=== PATIENT | female | born 1940 | race Caucasian/White ===

== ENCOUNTER 2018-07-31 15:34 | Inpatient (IN) | payer MEDICARE ==
[2018-07-31 15:40] VITALS: BMI 25.0
--- NOTE | 2018-07-31 16:24 | C.PDOC ---
History Of Present Illness 78 y/o female presents to the ER complaining of abdominal pain which has been present for the past 3 days.Patient states that she has abdominal pain when she has the urge to have bowel movement. Patient reports that she has diarrhea. She notes that she had 2 fainting episodes because of the pain yesterday. Daughter of patient notes that she was recently diagnosed with UTI 2 months ago and she just completed course of abx few days ago. Patient states that she has dizziness, nausea, and generalized weakness. Denies having fever,chills, vomiting, dysuria, and hematuria. PMD:Dr.Jayeshkumar Fonseca Time Seen by Provider: 07/31/18 15:47 Chief Complaint (Nursing): Abdominal Pain Past Medical History Reviewed: Historical Data, Nursing Documentation, Vital Signs Vital Signs: Last Vital Signs Temp 98.3 F 07/31/18 15:40 Pulse 76 07/31/18 15:40 Resp 18 07/31/18 15:40 BP 101/62 07/31/18 15:40 Pulse Ox 99 07/31/18 15:40 Primary Care Provider: Paco Fonseca S - Medical History PMH: Anemia, Diabetes, HTN, Hypothyroidism Other Surgeries: Hx of surgeries - [facility] Procedures COLONOSCOPY (02/18/14) Family History: States: No Known Family Hx - Social History Hx Tobacco Use: No Hx Alcohol Use: No Hx Substance Use: No - Immunization History Hx Tetanus Toxoid Vaccination: No Review Of Systems Except As Marked, All Systems Reviewed And Found Negative. Constitutional: Positive for: Weakness. Negative for: Fever, Chills Gastrointestinal: Positive for: Nausea, Abdominal Pain, Diarrhea. Negative for: Vomiting Genitourinary: Negative for: Dysuria, Hematuria Neurological: Positive for: Dizziness. Negative for: Headache Physical Exam - Physical Exam Appears: Non-toxic, No Acute Distress Skin: Normal Color, Warm, Dry Head: Atraumatic, Normacephalic Eye(s): bilateral: Normal Inspection Nose: Normal Oral Mucosa: Moist Lips: Other (dry lips) Neck: Supple Chest: Symmetrical Cardiovascular: Rhythm Regular Respiratory: Normal Breath Sounds, No Rales, No Rhonchi, No Wheezing Gastrointestinal/Abdominal: Soft, Tenderness, No Guarding, No Rebound (tenderness in lower quadrant(L>R)) Neurological/Psych: Oriented x3, Normal Speech ED Course And Treatment - Laboratory Results Result Diagrams: 07/31/18 16:49 07/31/18 16:49 ECG: Interpreted By Me, Viewed By Me ECG Rhythm: Sinus Rhythm Interpretation Of ECG: NSR with right axis deviation and prolonged WI interval Rate From EC O2 Sat by Pulse Oximetry: 99 (RA) Pulse Ox Interpretation: Normal Medical Decision Making Medical Decision Making: Plan: --Labs --ECG --UA --Urine Culture --CT-Abd & Pelv. Updates: 18:[address]J Fonseca. Patient will be admitted under the service of Dr. Ban Fonseca. 18:45 Case discussed with GI fellow. GI fellow advised for stool culture order. GI Fellow noted that if C.Diff is negative, then medications can be changed. Disposition - Disposition - Scribe Statement The provider has reviewed the documentation as recorded by the Scribe Rajesh Barlow Provider Attestation: All medical record entries made by the Scribe were at my direction and personally dictated by me. I have reviewed the chart and agree that the record accurately reflects my personal performance of the history, physical exam, medical decision making, and the department course for this patient. I have also personally directed, reviewed, and agree with the discharge instructions and disposition.
[2018-07-31 16:53] LABS: BASO % 0.2 % (0.0-2.0); EOS % 0.5 % (0.0-4.0); HEMOGLOBIN 9.4 g/dL (11.0-16.0); LYMPH # 0.9 K/uL (1.0-4.3); LYMPH % 8.9 % (20.0-40.0); MEAN CELL VOLUME 87.3 fL (81.0-99.0); MEAN CORPUSCULAR HEMOGLOBIN 28.7 pg (27.0-31.0); MEAN CORPUSCULAR HGB CONC 32.9 g/dL (33.0-37.0); MEAN PLATELET VOLUME 7.8 fL (7.2-11.7); MONO # 0.9 K/uL (0.0-0.8); MONO % 8.7 % (0.0-10.0); NEUT # 8.7 K/uL (1.8-7.0); NEUT % 81.7 % (50.0-75.0); PLATELET COUNT 183 K/uL (130-400); RBC 3.26 Mil/uL (3.80-5.20); RED CELL DISTRIBUTION WIDTH 14.7 % (11.5-14.5)
[2018-07-31 16:56] LABS: WHITE BLOOD COUNT 10.6 K/uL (4.8-10.8)
[2018-07-31 17:15] LABS: ALB/GLOB RATIO 1.5 (1.0-2.1); ALBUMIN 3.7 g/dL (3.5-5.0); ALT/SGPT 55 U/L (9-52); AST/SGOT 52 U/L (14-36); BLOOD UREA NITROGEN 12 mg/dL (7-17); CALCIUM 7.2 mg/dl (8.6-10.4); GFR NON-AFRICAN AMERICAN 54; LIPASE 69 U/L (23-300)
[2018-07-31 17:16] LABS: SQUAMOUS EPITHIAL 1 /hpf (0-5); URINE BACTERIA RARE (<OCC); URINE BILIRUBIN NEGATIVE (NEGATIVE); URINE BLOOD NEGATIVE (NEGATIVE); URINE CLARITY Clear (Clear); URINE COLOR Yellow (YELLOW); URINE GLUCOSE (UA) NORMAL (Normal); URINE LEUKOCYTE ESTERASE NEG Leu/uL (Negative); URINE PROTEIN NEGATIVE (NEGATIVE); URINE UROBILINOGEN NORMAL mg/dL (0.2-1.0)
[2018-07-31] MEDS ORDERED: Sodium Chloride 0.9% 1,000 ML ONE (17:29)
[2018-07-31] MEDS: Sodium Chloride 0.9% 1,000 ML IV SCH (17:30)
[2018-07-31] MEDS ORDERED: Iodixanol 320 MG/ML 100 ML BOTTLE IV ONE (17:31)
[2018-07-31 17:42] LABS: BANDS 15 % (0-2); LYMPHOCYTE 10 % (20-40); MONOCYTE 5 % (0-10); NEUTROPHIL 70 % (50-75); TOTAL CELLS COUNTED 100
[2018-07-31 17:43] LABS: HYPOCHROMIC SLIGHT; PLATELET ESTIMATE NORMAL (NORMAL); POLYCHROMIC SLIGHT
--- NOTE | 2018-07-31 18:20 | CT ---
Date of service: 07/31/2018 PROCEDURE: CT Abdomen and Pelvis with contrast HISTORY: Abdominal pain. COMPARISON: None. TECHNIQUE: Intravenous contrast dose: 100 cc Visipaque 320. Radiation dose: Total exam DLP = 558.79 mGy-cm. This CT exam was performed using one or more of the following dose reduction techniques: Automated exposure control, adjustment of the mA and/or kV according to patient size, and/or use of iterative reconstruction technique. FINDINGS: LOWER THORAX: Unremarkable. LIVER: Unremarkable. No gross lesion or ductal dilatation. Incidental finding(s): 1 cm cyst left hepatic lobe adjacent to the falciform ligament. GALLBLADDER AND BILE DUCTS: Unremarkable. PANCREAS: Unremarkable. No gross lesion or ductal dilatation. SPLEEN: Unremarkable. ADRENALS: Unremarkable. No mass. KIDNEYS AND URETERS: Unremarkable. No hydronephrosis. No solid mass. VASCULATURE: Unremarkable. No aortic aneurysm. No atherosclerotic calcification or mural plaque present. BOWEL: Severe estrella colitis. APPENDIX: A normal appendix is not visible. PERITONEUM: Unremarkable. No free fluid. No free air. LYMPH NODES: Unremarkable. No enlarged lymph nodes. BLADDER: Unremarkable. REPRODUCTIVE: Unremarkable. BONES: No acute fracture. OTHER FINDINGS: Trace fluid or cystic area in the left inguinal canal. Adjacent enlarged inguinal lymph nodes, the largest 1.3 x 1.6 cm. IMPRESSION: Estrella colitis. The most severely affected area includes the distal descending colon, sigmoid and rectum. Additional benign and/or incidental findings described above.
[2018-07-31] MEDS ORDERED: Ciprofloxacin 400mg/200ml D5W 400 MG/200 ML BAG IVPB STA (18:38)
[2018-07-31] MEDS ORDERED: Ciprofloxacin 400mg/200ml D5W 400 MG/200 ML BAG IVPB ONE (18:53)
[2018-07-31 19:05] LABS: VENOUS BLOOD GAS BASE EXCESS 3.2 mmol/L (0.0-2.0); VENOUS BLOOD GAS PCO2 42 mmHg (40-60); VENOUS BLOOD GAS PO2 18 mm/Hg (30-55); VENOUS BLOOD PH 7.43 (7.32-7.43)
[2018-07-31 23:21] VITALS: RESP 20
[2018-08-01] MEDS: metroNIDAZOLE IV 500 mg/100 ml 500 MG/100 ML BAG IVPB SCH ×3 (01:33→17:44)
[2018-08-01] MEDS: Sodium Chloride 0.9% 1,000 ML IV SCH ×2 (03:30→23:30)
[2018-08-01] MEDS: Levothyroxine 25 MCG TAB PO SCH (05:55)
[2018-08-01] MEDS ORDERED: Ciprofloxacin 400mg/200ml D5W 400 MG/200 ML BAG IVPB SCH (06:00)
[2018-08-01] MEDS ORDERED: Levothyroxine 25 MCG TAB PO SCH (06:30)
[2018-08-01 08:47] LABS: C DIFF TOXIN A B POSITIVE (NEGATIVE)
[2018-08-01] MEDS: Metoprolol Succinate 25 mg XL Tab PO SCH (09:15)
[2018-08-01] MEDS: Pantoprazole 40 mg EC Tab PO SCH (09:20)
--- NOTE | 2018-08-01 09:28 | CP.PCM.CON ---
<Sofía Calloway - Last Filed: 08/01/18 09:31> History of Present Illness - History of Present Illness History of Present Illness: GI Fellow PGY5 Consult Note 78 y/o female with pmhx of HTN, HLD, Hypothyroidism who presents to the ER complaining of abdominal pain which has been present for the past 3 days.Patient reports that she has diarrhea and was recently diagnosed with UTI 2 months ago and just completed course of abx few days ago. Patient states that she has dizziness, nausea, and generalized weakness. Denies having fever,chills, vomiting, dysuria, and hematuria. Pt had a screening colonoscopy [place] [address] Franks, no polyps or mass lesions found, +internal hemorrhoids Grade 2. Cec al intubation was not done and scope only reached mid ascending colon due to multiple bowel adhesions from intrabdominal surgery and patient was bradycardiac during procedure requiring atropine. Pt was told to followup as an outpatient for barium enema to evaluate right side of the colon but never came for appointment. ROS: A 12pt ROS was negative except as above PmHx: As stated in [facility]: Unable to recall SH: Denies tobacco, etoh or drugs FH: Negative for GI malignancy Past Patient History - Past Medical History & Family History Past Medical History?: Yes - Past Social History Smoking Status: Never Smoked - CARDIAC Hx Hypertension: Yes - PULMONARY Hx Respiratory Disorders: No - NEUROLOGICAL Hx Neurological Disorder: No - HEENT Hx HEENT Problems: Yes Hx Cataracts: Yes (BIOL) - ENDOCRINE/METABOLIC Hx Hypothyroidism: Yes - HEMATOLOGICAL/ONCOLOGICAL Hx Anemia: Yes - INTEGUMENTARY Hx Dermatological Problems: No - MUSCULOSKELETAL/RHEUMATOLOGICAL Hx Falls: No - GASTROINTESTINAL Hx Gastrointestinal Disorders: No - GENITOURINARY/GYNECOLOGICAL Hx Genitourinary Disorders: Yes Hx Urinary Tract Infection: Yes (since may 2018 for 2 months) - PSYCHIATRIC Hx Substance Use: No - SURGICAL HISTORY Hx Surgeries: Yes Hx Cataract Extraction: Yes (BIOL) Hx Coronary Stent: Yes Hx Dilation and Curettage: Yes Hx Thyroidectomy: Yes (SUB TOTAL) - ANESTHESIA Hx Anesthesia: Yes Hx Anesthesia Reactions: No Hx Malignant Hyperthermia: No Meds Allergies/Adverse Reactions: Allergies Allergy/AdvReac Type Severity Reaction Status Date / Time No Known Allergies Allergy Verified 07/31/18 15:39 - Medications Medications: Current Medications Amlodipine Besylate (Norvasc) 5 mg PO DAILY [facility] Last Admin: 08/01/18 09:15 Dose: 5 mg Aspirin (Ecotrin) 81 mg PO DAILY [facility] Last Admin: 08/01/18 09:15 Dose: 81 mg Enoxaparin Sodium (Lovenox) 40 mg SC DAILY [facility] Sodium Chloride (Sodium Chloride 0.9%) 1,000 mls @ 100 mls/hr IV .Q10H [facility] Last Admin: 07/31/18 17:30 Dose: 100 mls/hr Metronidazole (Flagyl) 500 mg in 100 mls @ 100 mls/hr IVPB Q8H [facility]; Protocol Last Admin: 08/01/18 01:33 Dose: 100 mls/hr Levothyroxine Sodium (Synthroid) 25 mcg PO DAILY@0630 [facility] Last Admin: 08/01/18 05:55 Dose: 25 mcg Losartan Potassium (Cozaar) 25 mg PO DAILY [facility] Last Admin: 08/01/18 09:15 Dose: 25 mg Metoprolol Succinate (Toprol Xl) 25 mg PO DAILY [facility] Last Admin: 08/01/18 09:15 Dose: 25 mg Ondansetron HCl (Zofran Tab) 4 mg PO TID PRN PRN Reason: Nausea/Vomiting Pantoprazole Sodium (Protonix Ec Tab) 40 mg PO DAILY [facility] Last Admin: 08/01/18 09:20 Dose: 40 mg Rosuvastatin Calcium (Crestor) 20 mg PO HS [facility] Ticagrelor (Brilinta) 60 mg PO BID [facility] Last Admin: 08/01/18 09:15 Dose: 60 mg Vancomycin HCl (Vancocin 250mg Capsule) 250 mg PO QID [facility] Physical Exam - Constitutional Appears: Non-toxic, No Acute Distress, Chronically Ill - Head Exam Head Exam: ATRAUMATIC, NORMAL INSPECTION, NORMOCEPHALIC - Eye Exam Eye Exam: EOMI, Normal appearance, PERRL - ENT Exam ENT Exam: Mucous Membranes Moist, Normal Exam - Neck Exam Neck exam: Positive for: Full Rom, Normal Inspection - Respiratory Exam Respiratory Exam: Clear to Auscultation Bilateral, NORMAL BREATHING PATTERN - Cardiovascular Exam Cardiovascular Exam: REGULAR RHYTHM, RRR, +S1, +S2 - GI/Abdominal Exam GI & Abdominal Exam: Normal Bowel Sounds, Soft, Tenderness. absent: Distended, Firm, Guarding, Organomegaly - Rectal Exam Rectal Exam: Deferred - Extremities Exam Extremities exam: Positive for: full ROM, normal inspection - Neurological Exam Neurological exam: Alert, Oriented x3 - Psychiatric Exam Psychiatric exam: Flat Affect, Normal Mood - Skin Skin Exam: Dry, Intact, Normal Color, Warm Results - Vital Signs Recent Vital Signs: Last Vital Signs Temp 97.6 F 08/01/18 07:00 Pulse 72 08/01/18 07:00 Resp 20 08/01/18 07:00 BP 127/66 08/01/18 07:00 Pulse Ox 97 08/01/18 07:00 - Labs Result Diagrams: 07/31/18 16:49 07/31/18 16:49 Labs: Laboratory Results - last 24 hr 07/31/18 07/31/18 07/31/18 07:11 16:49 16:49 WBC 10.6 D RBC 3.26 L Hgb 9.4 L Hct 28.4 L MCV 87.3 MCH 28.7 MCHC 32.9 L RDW 14.7 H Plt Count 183 MPV 7.8 Neut % (Auto) 81.7 H Lymph % (Auto) 8.9 L Mccone % (Auto) 8.7 Eos % (Auto) 0.5 Baso % (Auto) 0.2 Neut # (Auto) 8.7 H Lymph # (Auto) 0.9 L Mccone # (Auto) 0.9 H Eos # (Auto) 0.0 Baso # (Auto) 0.0 Neutrophils % (Manual) 70 Band Neutrophils % 15 H* Lymphocytes % (Manual) 10 L Monocytes % (Manual) 5 Platelet Estimate Normal Polychromasia Slight Hypochromasia (manual) Slight pO2 VBG pH VBG pCO2 VBG HCO3 VBG Total CO2 VBG O2 Sat (Calc) VBG Base Excess VBG Potassium Glucose Lactate Sodium 131 L Potassium 3.5 L Chloride 93 L Carbon Dioxide 27 Anion Gap 14 BUN 12 Creatinine 1.0 Est GFR ( Amer) > 60 Est GFR (Non-Af Amer) 54 Random Glucose 94 Calcium 7.2 L Total Bilirubin 1.1 AST 52 H ALT 55 H D Alkaline Phosphatase 63 Troponin I < 0.0120 Total Protein 6.1 L Albumin 3.7 Globulin 2.5 Albumin/Globulin Ratio 1.5 Lipase 69 Venous Blood Potassium Urine Color Urine Clarity Urine pH Ur Specific [place] Urine Protein Urine Glucose (UA) Urine Ketones Urine Blood Urine Nitrate Urine Bilirubin Urine Urobilinogen Ur Leukocyte Esterase Urine WBC (Auto) Urine RBC (Auto) Ur Squamous Epith Cells Urine Bacteria Stool Occult Blood C. difficile Ag & Toxin Positive H 07/31/18 07/31/18 08/01/18 17:10 19:03 07:11 WBC RBC Hgb Hct MCV MCH MCHC RDW Plt Count MPV Neut % (Auto) Lymph % (Auto) Mccone % (Auto) Eos % (Auto) Baso % (Auto) Neut # (Auto) Lymph # (Auto) Mccone # (Auto) Eos # (Auto) Baso # (Auto) Neutrophils % (Manual) Band Neutrophils % Lymphocytes % (Manual) Monocytes % (Manual) Platelet Estimate Polychromasia Hypochromasia (manual) pO2 18 L VBG pH 7.43 VBG pCO2 42 VBG HCO3 25.6 VBG Total CO2 29.2 H VBG O2 Sat (Calc) 22.7 L VBG Base Excess 3.2 H VBG Potassium 3.7 Glucose 99 Lactate 1.2 Sodium 131.0 L Potassium Chloride 100.0 Carbon Dioxide Anion Gap BUN Creatinine Est GFR ( Amer) Est GFR (Non-Af Amer) Random Glucose Calcium Total Bilirubin AST ALT Alkaline Phosphatase Troponin I Total Protein Albumin Globulin Albumin/Globulin Ratio Lipase Venous Blood Potassium 3.7 Urine Color Yellow Urine Clarity Clear Urine pH 7.0 Ur Specific [place] 1.005 Urine Protein Negative Urine Glucose (UA) Normal Urine Ketones Negative Urine Blood Negative Urine Nitrate Negative Urine Bilirubin Negative Urine Urobilinogen Normal Ur Leukocyte Esterase Neg Urine WBC (Auto) 2 Urine RBC (Auto) 1 Ur Squamous Epith Cells 1 Urine Bacteria Rare Stool Occult Blood Positive H C. difficile Ag & Toxin Assessment & Plan - Assessment and Plan (Free Text) Assessment: . C diff colitis 2. Abdominal Pain 3. Diarrhea Plan: -Continue supportive care with IVF hydration and pain control -Clear liquid diet -CT imaging reviewed with thickening of left sided colon worse -Cdiff positive from recent abx use -Pt with bandemia -Will start po vancomycin and IV flagyl -Monitor labs, estrella cultures pending -Pt will need outpatient colonoscopy in 6-8 weeks after resolution of infection -will monitor clinical course <Robert Hogan - Last Filed: 08/01/18 14:10> Meds - Medications Medications: Current Medications Amlodipine Besylate (Norvasc) 5 mg PO DAILY [facility] Last Admin: 08/01/18 09:15 Dose: 5 mg Aspirin (Ecotrin) 81 mg PO DAILY [facility] Last Admin: 08/01/18 09:15 Dose: 81 mg Sodium Chloride (Sodium Chloride 0.9%) 1,000 mls @ 100 mls/hr IV .Q10H [facility] Last Admin: 07/31/18 17:30 Dose: 100 mls/hr Metronidazole (Flagyl) 500 mg in 100 mls @ 100 mls/hr IVPB Q8H [facility]; Protocol Last Admin: 08/01/18 10:12 Dose: 100 mls/hr Levothyroxine Sodium (Synthroid) 25 mcg PO DAILY@0630 [facility] Last Admin: 08/01/18 05:55 Dose: 25 mcg Losartan Potassium (Cozaar) 25 mg PO DAILY [facility] Last Admin: 08/01/18 09:15 Dose: 25 mg Metoprolol Succinate (Toprol Xl) 25 mg PO DAILY [facility] Last Admin: 08/01/18 09:15 Dose: 25 mg Ondansetron HCl (Zofran Tab) 4 mg PO TID PRN PRN Reason: Nausea/Vomiting Pantoprazole Sodium (Protonix Ec Tab) 40 mg PO DAILY [facility] Last Admin: 08/01/18 09:20 Dose: 40 mg Rosuvastatin Calcium (Crestor) 20 mg PO HS [facility] Ticagrelor (Brilinta) 60 mg PO BID [facility] Last Admin: 08/01/18 09:15 Dose: 60 mg Vancomycin HCl (Vancocin 250mg Capsule) 250 mg PO QID [facility] Last Admin: 08/01/18 13:24 Dose: 250 mg Results - Vital Signs Recent Vital Signs: Last Vital Signs Temp 97.6 F 08/01/18 07:00 Pulse 72 08/01/18 07:00 Resp 20 08/01/18 07:00 BP 127/66 08/01/18 07:00 Pulse Ox 97 08/01/18 07:00 - Labs Result Diagrams: 07/31/18 16:49 07/31/18 16:49 Labs: Laboratory Results - last 24 hr 07/31/18 07/31/18 07/31/18 07:11 16:49 16:49 WBC 10.6 D RBC 3.26 L Hgb 9.4 L Hct 28.4 L MCV 87.3 MCH 28.7 MCHC 32.9 L RDW 14.7 H Plt Count 183 MPV 7.8 Neut % (Auto) 81.7 H Lymph % (Auto) 8.9 L Mccone % (Auto) 8.7 Eos % (Auto) 0.5 Baso % (Auto) 0.2 Neut # (Auto) 8.7 H Lymph # (Auto) 0.9 L Mccone # (Auto) 0.9 H Eos # (Auto) 0.0 Baso # (Auto) 0.0 Neutrophils % (Manual) 70 Band Neutrophils % 15 H* Lymphocytes % (Manual) 10 L Monocytes % (Manual) 5 Platelet Estimate Normal Polychromasia Slight Hypochromasia (manual) Slight pO2 VBG pH VBG pCO2 VBG HCO3 VBG Total CO2 VBG O2 Sat (Calc) VBG Base Excess VBG Potassium Glucose Lactate Sodium 131 L Potassium 3.5 L Chloride 93 L Carbon Dioxide 27 Anion Gap 14 BUN 12 Creatinine 1.0 Est GFR ( Amer) > 60 Est GFR (Non-Af Amer) 54 Random Glucose 94 Calcium 7.2 L Total Bilirubin 1.1 AST 52 H ALT 55 H D Alkaline Phosphatase 63 Troponin I < 0.0120 Total Protein 6.1 L Albumin 3.7 Globulin 2.5 Albumin/Globulin Ratio 1.5 Lipase 69 Venous Blood Potassium Urine Color Urine Clarity Urine pH Ur Specific [place] Urine Protein Urine Glucose (UA) Urine Ketones Urine Blood Urine Nitrate Urine Bilirubin Urine Urobilinogen Ur Leukocyte Esterase Urine WBC (Auto) Urine RBC (Auto) Ur Squamous Epith Cells Urine Bacteria Stool Occult Blood C. difficile Ag & Toxin Positive H 07/31/18 07/31/18 08/01/18 17:10 19:03 07:11 WBC RBC Hgb Hct MCV MCH MCHC RDW Plt Count MPV Neut % (Auto) Lymph % (Auto) Mccone % (Auto) Eos % (Auto) Baso % (Auto) Neut # (Auto) Lymph # (Auto) Mccone # (Auto) Eos # (Auto) Baso # (Auto) Neutrophils % (Manual) Band Neutrophils % Lymphocytes % (Manual) Monocytes % (Manual) Platelet Estimate Polychromasia Hypochromasia (manual) pO2 18 L VBG pH 7.43 VBG pCO2 42 VBG HCO3 25.6 VBG Total CO2 29.2 H VBG O2 Sat (Calc) 22.7 L VBG Base Excess 3.2 H VBG Potassium 3.7 Glucose 99 Lactate 1.2 Sodium 131.0 L Potassium Chloride 100.0 Carbon Dioxide Anion Gap BUN Creatinine Est GFR ( Amer) Est GFR (Non-Af Amer) Random Glucose Calcium Total Bilirubin AST ALT Alkaline Phosphatase Troponin I Total Protein Albumin Globulin Albumin/Globulin Ratio Lipase Venous Blood Potassium 3.7 Urine Color Yellow Urine Clarity Clear Urine pH 7.0 Ur Specific Benedict 1.005 Urine Protein Negative Urine Glucose (UA) Normal Urine Ketones Negative Urine Blood Negative Urine Nitrate Negative Urine Bilirubin Negative Urine Urobilinogen Normal Ur Leukocyte Esterase Neg Urine WBC (Auto) 2 Urine RBC (Auto) 1 Ur Squamous Epith Cells 1 Urine Bacteria Rare Stool Occult Blood Positive H C. difficile Ag & Toxin Attending/Attestation - Attestation I have personally seen and examined this patient.: Yes I have fully participated in the care of the patient.: Yes I have reviewed all pertinent clinical information: Yes Notes (Text): 08/01/18 13:53 I have seen and examined patient with GI fellow. Agree with above documentation with the following additions. In brief, this is a 78 year old female with history of HTN, hypothyroidism who presents to hospital with complaint of progressive abdominal pain which started 3 days ago. She describes a bilateral lower quadrant pain, L>R, 7/10 intensity that radiates to suprapubic region. She reports associated non-bloody diarrhea during this time period with copious mucous discharge. She denies nausea, vomiting, fever/chills, weight loss, sick contacts, travel. She does note multiple recent uses of antibiotics for treatment of recurrent UTI. She had a colonoscopy [place] [address] Chawla which was incomplete due to patient experiencing bradycardia during procedure. HTN Hypothyroidism Abdominal pain, diarrhea - c-difficile associated colitis CT imaging reviewed by me showing diffuse colitis, more prominent on left side with ana-colonic stranding and wall thickening - Liquid diet as tolerated - Continue with antibiotic therapy, add PO vancomycin given significant colitis with bandemia - Anti-emetic therapy PRN - Patient will require follow up complete colonoscopy within 6-8 weeks after resolution of acute symptoms - Will continue to monitor patient clinical course
[2018-08-01] MEDS ORDERED: Enoxaparin 40 mg Syringe SC SCH (10:00)
[2018-08-01] MEDS: Vancomycin Hydrochloride 250 mg Capsule (Oral) PO SCH ×4 (10:50→21:44)
--- NOTE | 2018-08-01 14:20 | CP.PCM.HP ---
Past Patient History - Past Medical History & Family History Past Medical History?: Yes - Past Social History Smoking Status: Never Smoked - CARDIAC Hx Hypertension: Yes - PULMONARY Hx Respiratory Disorders: No - NEUROLOGICAL Hx Neurological Disorder: No - HEENT Hx HEENT Problems: Yes Hx Cataracts: Yes (BIOL) - ENDOCRINE/METABOLIC Hx Hypothyroidism: Yes - HEMATOLOGICAL/ONCOLOGICAL Hx Anemia: Yes - INTEGUMENTARY Hx Dermatological Problems: No - MUSCULOSKELETAL/RHEUMATOLOGICAL Hx Falls: No - GASTROINTESTINAL Hx Gastrointestinal Disorders: No - GENITOURINARY/GYNECOLOGICAL Hx Genitourinary Disorders: Yes Hx Urinary Tract Infection: Yes (since may 2018 for 2 months) - PSYCHIATRIC Hx Substance Use: No - SURGICAL HISTORY Hx Surgeries: Yes Hx Cataract Extraction: Yes (BIOL) Hx Coronary Stent: Yes Hx Dilation and Curettage: Yes Hx Thyroidectomy: Yes (SUB TOTAL) - ANESTHESIA Hx Anesthesia: Yes Hx Anesthesia Reactions: No Hx Malignant Hyperthermia: No Meds Allergies/Adverse Reactions: Allergies Allergy/AdvReac Type Severity Reaction Status Date / Time No Known Allergies Allergy Verified 07/31/18 15:39 Physical Exam - Constitutional Appears: Well - Head Exam Head Exam: ATRAUMATIC, NORMAL INSPECTION, NORMOCEPHALIC - Eye Exam Eye Exam: EOMI, Normal appearance, PERRL Pupil Exam: NORMAL ACCOMODATION, PERRL - ENT Exam ENT Exam: Mucous Membranes Moist, Normal Exam - Neck Exam Neck exam: Positive for: Normal Inspection - Respiratory Exam Respiratory Exam: Decreased Breath Sounds - Cardiovascular Exam Cardiovascular Exam: REGULAR RHYTHM, +S1, +S2 - GI/Abdominal Exam GI & Abdominal Exam: Diminished Bowel Sounds, Soft - Rectal Exam Rectal Exam: Deferred - Neurological Exam Neurological exam: Oriented x3 Results - Vital Signs Recent Vital Signs: Last Vital Signs Temp 97.6 F 08/01/18 07:00 Pulse 72 08/01/18 07:00 Resp 20 08/01/18 07:00 BP 127/66 08/01/18 07:00 Pulse Ox 97 08/01/18 07:00 - Labs Result Diagrams: 07/31/18 16:49 07/31/18 16:49 Labs: Laboratory Results - last 24 hr 07/31/18 07/31/18 07/31/18 07:11 16:49 16:49 WBC 10.6 D RBC 3.26 L Hgb 9.4 L Hct 28.4 L MCV 87.3 MCH 28.7 MCHC 32.9 L RDW 14.7 H Plt Count 183 MPV 7.8 Neut % (Auto) 81.7 H Lymph % (Auto) 8.9 L Swisher % (Auto) 8.7 Eos % (Auto) 0.5 Baso % (Auto) 0.2 Neut # (Auto) 8.7 H Lymph # (Auto) 0.9 L Swisher # (Auto) 0.9 H Eos # (Auto) 0.0 Baso # (Auto) 0.0 Neutrophils % (Manual) 70 Band Neutrophils % 15 H* Lymphocytes % (Manual) 10 L Monocytes % (Manual) 5 Platelet Estimate Normal Polychromasia Slight Hypochromasia (manual) Slight pO2 VBG pH VBG pCO2 VBG HCO3 VBG Total CO2 VBG O2 Sat (Calc) VBG Base Excess VBG Potassium Glucose Lactate Sodium 131 L Potassium 3.5 L Chloride 93 L Carbon Dioxide 27 Anion Gap 14 BUN 12 Creatinine 1.0 Est GFR ( Amer) > 60 Est GFR (Non-Af Amer) 54 Random Glucose 94 Calcium 7.2 L Total Bilirubin 1.1 AST 52 H ALT 55 H D Alkaline Phosphatase 63 Troponin I < 0.0120 Total Protein 6.1 L Albumin 3.7 Globulin 2.5 Albumin/Globulin Ratio 1.5 Lipase 69 Venous Blood Potassium Urine Color Urine Clarity Urine pH Ur Specific [place] Urine Protein Urine Glucose (UA) Urine Ketones Urine Blood Urine Nitrate Urine Bilirubin Urine Urobilinogen Ur Leukocyte Esterase Urine WBC (Auto) Urine RBC (Auto) Ur Squamous Epith Cells Urine Bacteria Stool Occult Blood C. difficile Ag & Toxin Positive H 07/31/18 07/31/18 08/01/18 17:10 19:03 07:11 WBC RBC Hgb Hct MCV MCH MCHC RDW Plt Count MPV Neut % (Auto) Lymph % (Auto) Swisher % (Auto) Eos % (Auto) Baso % (Auto) Neut # (Auto) Lymph # (Auto) Swisher # (Auto) Eos # (Auto) Baso # (Auto) Neutrophils % (Manual) Band Neutrophils % Lymphocytes % (Manual) Monocytes % (Manual) Platelet Estimate Polychromasia Hypochromasia (manual) pO2 18 L VBG pH 7.43 VBG pCO2 42 VBG HCO3 25.6 VBG Total CO2 29.2 H VBG O2 Sat (Calc) 22.7 L VBG Base Excess 3.2 H VBG Potassium 3.7 Glucose 99 Lactate 1.2 Sodium 131.0 L Potassium Chloride 100.0 Carbon Dioxide Anion Gap BUN Creatinine Est GFR ( Amer) Est GFR (Non-Af Amer) Random Glucose Calcium Total Bilirubin AST ALT Alkaline Phosphatase Troponin I Total Protein Albumin Globulin Albumin/Globulin Ratio Lipase Venous Blood Potassium 3.7 Urine Color Yellow Urine Clarity Clear Urine pH 7.0 Ur Specific [place] 1.005 Urine Protein Negative Urine Glucose (UA) Normal Urine Ketones Negative Urine Blood Negative Urine Nitrate Negative Urine Bilirubin Negative Urine Urobilinogen Normal Ur Leukocyte Esterase Neg Urine WBC (Auto) 2 Urine RBC (Auto) 1 Ur Squamous Epith Cells 1 Urine Bacteria Rare Stool Occult Blood Positive H C. difficile Ag & Toxin
[2018-08-01] MEDS ORDERED: Potassium Chloride 20 mEq ER Tab PO STA (21:15)
[2018-08-01 21:17] LABS: FECAL LEUKOCYTES POSITIVE (NEGATIVE)
[2018-08-02] MEDS: metroNIDAZOLE IV 500 mg/100 ml 500 MG/100 ML BAG IVPB SCH ×3 (01:53→17:47)
[2018-08-02] MEDS: Levothyroxine 25 MCG TAB PO SCH (06:06)
[2018-08-02] MEDS ORDERED: Ciprofloxacin 400mg/200ml D5W 400 MG/200 ML BAG IVPB SCH (07:00)
--- NOTE | 2018-08-02 08:25 | CP.PCM.PN ---
<Sofía Calloway - Last Filed: 08/02/18 08:22> Subjective - Date & Time of Evaluation Date of Evaluation: 08/02/18 Time of Evaluation: 08:00 - Subjective Subjective: GI Fellow PGY5 Progress Note Pt seen and evaluated at bedside, pt looks much better this am, abdomen less distended with improved pain and less BMs, mostly mucous and not diarrhea. ROS: A 12pt ROS was negative except as above. Objective - Vital Signs/Intake and Output Vital Signs (last 24 hours): Temp Pulse Resp BP Pulse Ox 98 F 61 20 119/65 98 08/01/18 23:26 08/01/18 23:26 08/01/18 23:26 08/01/18 23:26 08/01/18 23:26 Intake and Output: 08/02/18 08/02/18 06:59 18:59 Intake Total 2300 Balance 2300 - Medications Medications: Current Medications Amlodipine Besylate (Norvasc) 5 mg PO DAILY [facility] Last Admin: 08/01/18 09:15 Dose: 5 mg Aspirin (Ecotrin) 81 mg PO DAILY [facility] Last Admin: 08/01/18 09:15 Dose: 81 mg Sodium Chloride (Sodium Chloride 0.9%) 1,000 mls @ 100 mls/hr IV .Q10H [facility] Last Admin: 08/01/18 23:30 Dose: Not Given Metronidazole (Flagyl) 500 mg in 100 mls @ 100 mls/hr IVPB Q8H [facility]; Protocol Last Admin: 08/02/18 01:53 Dose: 100 mls/hr Levothyroxine Sodium (Synthroid) 25 mcg PO DAILY@0630 [facility] Last Admin: 08/02/18 06:06 Dose: 25 mcg Losartan Potassium (Cozaar) 25 mg PO DAILY [facility] Last Admin: 08/01/18 09:15 Dose: 25 mg Metoprolol Succinate (Toprol Xl) 25 mg PO DAILY [facility] Last Admin: 08/01/18 09:15 Dose: 25 mg Ondansetron HCl (Zofran Tab) 4 mg PO TID PRN PRN Reason: Nausea/Vomiting Pantoprazole Sodium (Protonix Ec Tab) 40 mg PO DAILY [facility] Last Admin: 08/01/18 09:20 Dose: 40 mg Rosuvastatin Calcium (Crestor) 20 mg PO HS [facility] Last Admin: 08/01/18 21:44 Dose: 20 mg Ticagrelor (Brilinta) 60 mg PO BID [facility] Last Admin: 08/01/18 17:43 Dose: 60 mg Vancomycin HCl (Vancocin 250mg Capsule) 250 mg PO QID [facility] Last Admin: 08/01/18 21:44 Dose: 250 mg - Labs Labs: 07/31/18 16:49 07/31/18 16:49 - Constitutional Appears: Non-toxic, No Acute Distress - Head Exam Head Exam: ATRAUMATIC, NORMAL INSPECTION, NORMOCEPHALIC - Eye Exam Eye Exam: EOMI, Normal appearance, PERRL - ENT Exam ENT Exam: Mucous Membranes Moist, Normal Exam - Neck Exam Neck Exam: Full ROM, Normal Inspection - Respiratory Exam Respiratory Exam: Clear to Ausculation Bilateral, NORMAL BREATHING PATTERN - Cardiovascular Exam Cardiovascular Exam: REGULAR RHYTHM, RRR, +S1, +S2 - GI/Abdominal Exam GI & Abdominal Exam: Soft, Normal Bowel Sounds. absent: Distended, Firm, Guarding, Tenderness, Organomegaly - Rectal Exam Rectal Exam: Deferred - Extremities Exam Extremities Exam: Full ROM, Normal Inspection - Neurological Exam Neurological Exam: Alert, Awake, Oriented x3 - Psychiatric Exam Psychiatric exam: Normal Affect, Normal Mood - Skin Skin Exam: Dry, Intact, Normal Color, Warm Assessment and Plan - Assessment and Plan (Free Text) Assessment: 1. C diff colitis 2. Abdominal Pain 3. Diarrhea Plan: -Continue supportive care with IVF hydration and pain control -Advance to full liquid diet today -CT imaging reviewed with thickening of left sided colon worse -Cdiff positive from recent abx use -Pt with bandemia, monitor labs -Continue po vancomycin and IV flagyl, dc IV Cipro -When pt ready for dc can go on po vancomycin for total 14days -Pt will need outpatient colonoscopy in 6-8 weeks after resolution of infection -Will monitor clinical course <Robert Hogan - Last Filed: 08/02/18 14:51> Objective - Vital Signs/Intake and Output Vital Signs (last 24 hours): Temp Pulse Resp BP Pulse Ox 97.7 F 58 L 20 120/72 99 08/02/18 08:27 08/02/18 08:27 08/02/18 08:27 08/02/18 08:27 08/02/18 08:27 Intake and Output: 08/02/18 08/02/18 06:59 18:59 Intake Total 2300 Balance 2300 - Medications Medications: Current Medications Acetaminophen (Tylenol 325mg Tab) 650 mg PO Q8 PRN PRN Reason: Pain, Mild (1-3) Last Admin: 08/02/18 13:07 Dose: 650 mg Amlodipine Besylate (Norvasc) 5 mg PO DAILY [facility] Last Admin: 08/02/18 10:39 Dose: 5 mg Aspirin (Ecotrin) 81 mg PO DAILY [facility] Last Admin: 08/02/18 10:39 Dose: 81 mg Hydrocortisone (Anusol-Hc) 0 gm [place] BID [facility] Last Admin: 08/02/18 12:24 Dose: Not Given Sodium Chloride (Sodium Chloride 0.9%) 1,000 mls @ 100 mls/hr IV .Q10H [facility] Last Admin: 08/02/18 10:41 Dose: 100 mls/hr Metronidazole (Flagyl) 500 mg in 100 mls @ 100 mls/hr IVPB Q8H [facility]; Protocol Last Admin: 08/02/18 10:40 Dose: 100 mls/hr Levothyroxine Sodium (Synthroid) 25 mcg PO DAILY@0630 [facility] Last Admin: 08/02/18 06:06 Dose: 25 mcg Losartan Potassium (Cozaar) 25 mg PO DAILY [facility] Last Admin: 08/02/18 10:39 Dose: 25 mg Metoprolol Succinate (Toprol Xl) 25 mg PO DAILY [facility] Last Admin: 08/02/18 10:39 Dose: 25 mg Ondansetron HCl (Zofran Tab) 4 mg PO TID PRN PRN Reason: Nausea/Vomiting Pantoprazole Sodium (Protonix Ec Tab) 40 mg PO DAILY [facility] Last Admin: 08/02/18 10:39 Dose: 40 mg Rosuvastatin Calcium (Crestor) 20 mg PO HS [facility] Last Admin: 08/01/18 21:44 Dose: 20 mg Ticagrelor (Brilinta) 60 mg PO BID [facility] Last Admin: 08/02/18 10:39 Dose: 60 mg Vancomycin HCl (Vancocin 250mg Capsule) 250 mg PO QID [facility] Last Admin: 08/02/18 13:06 Dose: 250 mg - Labs Labs: 08/02/18 11:12 08/02/18 11:12 Attending/Attestation - Attestation I have personally seen and examined this patient.: Yes I have fully participated in the care of the patient.: Yes I have reviewed all pertinent clinical information, including history, physical exam and plan: Yes Notes (Text): 08/02/18 14:45 I have seen and examined patient. No acute events overnight, she is seen resting in bed comfortably. She denies abdominal pain, nausea, vomiting, fever/chills. She had two loose bowel movements today thus far. Tolerating PO liquids without difficulty. Abdominal pain C-difficile associated colitis - Advance diet slowly as tolerated - Continue with PO Vancomycin therapy to complete 14 day course - Follow up ID recommendations regarding ecoli in urine - Suggest outpatient colonoscopy 6-8 weeks following resolution of acute symptoms - Will continue to monitor patient clinical course
[2018-08-02] MEDS: Pantoprazole 40 mg EC Tab PO SCH (10:39)
[2018-08-02] MEDS: Vancomycin Hydrochloride 250 mg Capsule (Oral) PO SCH ×4 (10:39→21:29)
[2018-08-02] MEDS: Metoprolol Succinate 25 mg XL Tab PO SCH (10:39)
[2018-08-02] MEDS: Sodium Chloride 0.9% 1,000 ML IV SCH ×2 (10:41→21:30)
[2018-08-02 11:18] LABS: HEMOGLOBIN 10.1 g/dL (11.0-16.0); MEAN CELL VOLUME 87.1 fL (81.0-99.0); MEAN CORPUSCULAR HEMOGLOBIN 29.2 pg (27.0-31.0); MEAN CORPUSCULAR HGB CONC 33.6 g/dL (33.0-37.0); MEAN PLATELET VOLUME 7.7 fL (7.2-11.7); RBC 3.44 Mil/uL (3.80-5.20); WHITE BLOOD COUNT 6.3 K/uL (4.8-10.8)
[2018-08-02 11:31] LABS: ALB/GLOB RATIO 1.2 (1.0-2.1); ALBUMIN 3.6 g/dL (3.5-5.0); ALT/SGPT 46 U/L (9-52); AST/SGOT 58 U/L (14-36); BLOOD UREA NITROGEN 4 mg/dL (7-17); CALCIUM 8.1 mg/dl (8.6-10.4); GFR NON-AFRICAN AMERICAN > 60
[2018-08-02] MEDS: Hydrocortisone 2.5% Rectal Cream(30 gm) PR SCH ×2 (12:24→17:48)
[2018-08-02 15:34] LABS: SQUAMOUS EPITHIAL 1 /hpf (0-5); URINE BILIRUBIN NEGATIVE (NEGATIVE); URINE BLOOD NEGATIVE (NEGATIVE); URINE CLARITY Clear (Clear); URINE COLOR Yellow (YELLOW); URINE GLUCOSE (UA) NORMAL (Normal); URINE LEUKOCYTE ESTERASE NEG Leu/uL (Negative); URINE PROTEIN NEGATIVE (NEGATIVE); URINE UROBILINOGEN NORMAL mg/dL (0.2-1.0)
--- NOTE | 2018-08-02 15:58 | CP.PCM.CON ---
History of Present Illness - History of Present Illness History of Present Illness: dictated Past Patient History - Past Medical History & Family History Past Medical History?: Yes - Past Social History Smoking Status: Never Smoked - CARDIAC Hx Hypertension: Yes - PULMONARY Hx Respiratory Disorders: No - NEUROLOGICAL Hx Neurological Disorder: No - HEENT Hx HEENT Problems: Yes Hx Cataracts: Yes (BIOL) - ENDOCRINE/METABOLIC Hx Hypothyroidism: Yes - HEMATOLOGICAL/ONCOLOGICAL Hx Anemia: Yes - INTEGUMENTARY Hx Dermatological Problems: No - MUSCULOSKELETAL/RHEUMATOLOGICAL Hx Falls: No - GASTROINTESTINAL Hx Gastrointestinal Disorders: No - GENITOURINARY/GYNECOLOGICAL Hx Genitourinary Disorders: Yes Hx Urinary Tract Infection: Yes (since may 2018 for 2 months) - PSYCHIATRIC Hx Substance Use: No - SURGICAL HISTORY Hx Surgeries: Yes Hx Cataract Extraction: Yes (BIOL) Hx Coronary Stent: Yes Hx Dilation and Curettage: Yes Hx Thyroidectomy: Yes (SUB TOTAL) - ANESTHESIA Hx Anesthesia: Yes Hx Anesthesia Reactions: No Hx Malignant Hyperthermia: No Meds Allergies/Adverse Reactions: Allergies Allergy/AdvReac Type Severity Reaction Status Date / Time No Known Allergies Allergy Verified 07/31/18 15:39 - Medications Medications: Current Medications Acetaminophen (Tylenol 325mg Tab) 650 mg PO Q8 PRN PRN Reason: Pain, Mild (1-3) Last Admin: 08/02/18 13:07 Dose: 650 mg Amlodipine Besylate (Norvasc) 5 mg PO DAILY [facility] Last Admin: 08/02/18 10:39 Dose: 5 mg Aspirin (Ecotrin) 81 mg PO DAILY [facility] Last Admin: 08/02/18 10:39 Dose: 81 mg Hydrocortisone (Anusol-Hc) 0 gm [place] BID [facility] Last Admin: 08/02/18 12:24 Dose: Not Given Sodium Chloride (Sodium Chloride 0.9%) 1,000 mls @ 100 mls/hr IV .Q10H [facility] Last Admin: 08/02/18 10:41 Dose: 100 mls/hr Metronidazole (Flagyl) 500 mg in 100 mls @ 100 mls/hr IVPB Q8H [facility]; Protocol Last Admin: 08/02/18 10:40 Dose: 100 mls/hr Levothyroxine Sodium (Synthroid) 25 mcg PO DAILY@0630 [facility] Last Admin: 08/02/18 06:06 Dose: 25 mcg Losartan Potassium (Cozaar) 25 mg PO DAILY [facility] Last Admin: 08/02/18 10:39 Dose: 25 mg Metoprolol Succinate (Toprol Xl) 25 mg PO DAILY [facility] Last Admin: 08/02/18 10:39 Dose: 25 mg Ondansetron HCl (Zofran Tab) 4 mg PO TID PRN PRN Reason: Nausea/Vomiting Pantoprazole Sodium (Protonix Ec Tab) 40 mg PO DAILY [facility] Last Admin: 08/02/18 10:39 Dose: 40 mg Rosuvastatin Calcium (Crestor) 20 mg PO HS [facility] Last Admin: 08/01/18 21:44 Dose: 20 mg Ticagrelor (Brilinta) 60 mg PO BID [facility] Last Admin: 08/02/18 10:39 Dose: 60 mg Vancomycin HCl (Vancocin 250mg Capsule) 250 mg PO QID [facility] Last Admin: 08/02/18 13:06 Dose: 250 mg Results - Vital Signs Recent Vital Signs: Last Vital Signs Temp 97.7 F 08/02/18 08:27 Pulse 58 L 08/02/18 08:27 Resp 20 08/02/18 08:27 BP 120/72 08/02/18 08:27 Pulse Ox 99 08/02/18 08:27 - Labs Result Diagrams: 08/02/18 11:12 08/02/18 11:12 Labs: Laboratory Results - last 24 hr 07/31/18 08/02/18 08/02/18 07:11 11:12 11:12 WBC 6.3 RBC 3.44 L Hgb 10.1 L Hct 30.0 L MCV 87.1 MCH 29.2 MCHC 33.6 RDW 15.0 H Plt Count 284 D MPV 7.7 Sodium 133 Potassium 3.5 L Chloride 99 Carbon Dioxide 23 Anion Gap 15 BUN 4 L Creatinine 0.8 Est GFR ( Amer) > 60 Est GFR (Non-Af Amer) > 60 Random Glucose 109 H Calcium 8.1 L Total Bilirubin 0.8 AST 58 H ALT 46 Alkaline Phosphatase 77 Total Protein 6.5 Albumin 3.6 Globulin 2.9 Albumin/Globulin Ratio 1.2 Urine Color Urine Clarity Urine pH Ur Specific [place] Urine Protein Urine Glucose (UA) Urine Ketones Urine Blood Urine Nitrate Urine Bilirubin Urine Urobilinogen Ur Leukocyte Esterase Urine WBC (Auto) Urine RBC (Auto) Ur Squamous Epith Cells Stool Leukocytes, Qual Positive H 05/10/19 15:15 WBC RBC Hgb Hct MCV MCH MCHC RDW Plt Count MPV Sodium Potassium Chloride Carbon Dioxide Anion Gap BUN Creatinine Est GFR ( Amer) Est GFR (Non-Af Amer) Random Glucose Calcium Total Bilirubin AST ALT Alkaline Phosphatase Total Protein Albumin Globulin Albumin/Globulin Ratio Urine Color Yellow Urine Clarity Clear Urine pH 7.0 Ur Specific [place] 1.009 Urine Protein Negative Urine Glucose (UA) Normal Urine Ketones Negative Urine Blood Negative Urine Nitrate Negative Urine Bilirubin Negative Urine Urobilinogen Normal Ur Leukocyte Esterase Neg Urine WBC (Auto) 1 Urine RBC (Auto) 1 Ur Squamous Epith Cells 1 Stool Leukocytes, Qual
--- NOTE | 2018-08-02 19:46 | CP.PCM.PN ---
Subjective - Date & Time of Evaluation Date of Evaluation: 08/02/18 - Subjective Subjective: patient examined today no nausea no vomiting no fever no diarrhea no dizziness no shortness of breath Objective - Vital Signs/Intake and Output Vital Signs (last 24 hours): Temp Pulse Resp BP Pulse Ox 97.6 F 59 L 20 118/67 98 08/02/18 16:00 08/02/18 16:00 08/02/18 16:00 08/02/18 16:00 08/02/18 16:00 Intake and Output: 08/02/18 08/03/18 18:59 06:59 Intake Total 1100 Balance 1100 - Medications Medications: Current Medications Acetaminophen (Tylenol 325mg Tab) 650 mg PO Q8 PRN PRN Reason: Pain, Mild (1-3) Last Admin: 08/02/18 13:07 Dose: 650 mg Amlodipine Besylate (Norvasc) 5 mg PO DAILY [facility] Last Admin: 08/02/18 10:39 Dose: 5 mg Aspirin (Ecotrin) 81 mg PO DAILY [facility] Last Admin: 08/02/18 10:39 Dose: 81 mg Hydrocortisone (Anusol-Hc) 0 gm [place] BID [facility] Last Admin: 08/02/18 17:48 Dose: 1 applic Sodium Chloride (Sodium Chloride 0.9%) 1,000 mls @ 100 mls/hr IV .Q10H [facility] Last Admin: 08/02/18 10:41 Dose: 100 mls/hr Metronidazole (Flagyl) 500 mg in 100 mls @ 100 mls/hr IVPB Q8H [facility]; Protocol Last Admin: 08/02/18 17:47 Dose: 100 mls/hr Ceftriaxone Sodium 1 gm/ (Sodium Chloride) 100 mls @ 100 mls/hr IVPB DAILY [facility]; Protocol Levothyroxine Sodium (Synthroid) 25 mcg PO DAILY@0630 [facility] Last Admin: 08/02/18 06:06 Dose: 25 mcg Losartan Potassium (Cozaar) 25 mg PO DAILY [facility] Last Admin: 08/02/18 10:39 Dose: 25 mg Metoprolol Succinate (Toprol Xl) 25 mg PO DAILY [facility] Last Admin: 08/02/18 10:39 Dose: 25 mg Ondansetron HCl (Zofran Tab) 4 mg PO TID PRN PRN Reason: Nausea/Vomiting Pantoprazole Sodium (Protonix Ec Tab) 40 mg PO DAILY [facility] Last Admin: 08/02/18 10:39 Dose: 40 mg Potassium Chloride (Klor-Con 10) 40 meq PO BRK [facility] Rosuvastatin Calcium (Crestor) 20 mg PO HS [facility] Last Admin: 08/01/18 21:44 Dose: 20 mg Ticagrelor (Brilinta) 60 mg PO BID [facility] Last Admin: 08/02/18 17:47 Dose: 60 mg Vancomycin HCl (Vancocin 250mg Capsule) 250 mg PO QID [facility] Last Admin: 08/02/18 17:47 Dose: 250 mg - Labs Labs: 08/02/18 11:12 08/02/18 11:12 - Constitutional Appears: Well - Head Exam Head Exam: ATRAUMATIC, NORMAL INSPECTION, NORMOCEPHALIC - Eye Exam Eye Exam: EOMI, Normal appearance, PERRL Pupil Exam: NORMAL ACCOMODATION, PERRL - ENT Exam ENT Exam: Mucous Membranes Moist, Normal Exam - Neck Exam Neck Exam: Full ROM, Normal Inspection. absent: Lymphadenopathy - Respiratory Exam Respiratory Exam: Decreased Breath Sounds - Cardiovascular Exam Cardiovascular Exam: REGULAR RHYTHM, +S1, +S2 - GI/Abdominal Exam GI & Abdominal Exam: Soft, Diminished Bowel Sounds - Rectal Exam Rectal Exam: Deferred - Neurological Exam Neurological Exam: Oriented x3 Assessment and Plan - Assessment and Plan (Free Text) Plan: anusol hc brilinta ceftriaxone sodium cozaar crestor ecotrin flagyl klor-con 10 norvasc protonix ec tab sodium chloride 0.9% synthroid toprol xl tylenol vancocin zofran tab plan discussed with patient and family moderate complexity of care medications reviewed labs and vitals reviewed
[2018-08-03] MEDS: metroNIDAZOLE IV 500 mg/100 ml 500 MG/100 ML BAG IVPB SCH ×2 (01:27→09:30)
--- NOTE | 2018-08-03 05:35 | CON ---
DATE: 08/02/2018 INFECTIOUS DISEASE CONSULTATION REQUESTED BY: Belkis Fonseca MD HISTORY OF PRESENT ILLNESS: This patient is a 78-year-old female. She tells me that 2-1/2 months back she went to her [facility] and she was having urinary symptoms and she gave her antibiotic and she did not improve and then she saw Dr. Belkis Fonseca. Because she remained symptomatic, she got another course of antibiotics and she says now she started to have a different kind of abdominal pain. She has never had like that. She has a night to go and have a bowel movement and has abdominal pain when she presses and this started the day before coming here. She came here on Sunday, and she also was having fainting episodes because of the pain and she had antibiotics for UTI. She has dizziness, nausea and generalized weakness. She is on IV fluids, and at the present time, her C. diff came out positive. She denies any vomiting, dysuria or hematuria right now. She is on IV fluids as well as she is on Flagyl IV and vancomycin p.o. at this time and is getting supplemental potassium as needed. She is admitted under Dr. Belkis Fonseca. She has a history of hypertension. She denies any diabetes. PAST MEDICAL HISTORY: Only hypertension. ALLERGIES: SHE IS NOT ALLERGIC TO ANY MEDICINES. SOCIAL HISTORY: Negative for smoking. She drinks occasionally on social events. Denies any drug abuse. PAST SURGICAL HISTORY: She had a previous surgery for appendix in the past. FAMILY HISTORY: Noncontributory. REVIEW OF SYSTEMS: She denies any fever or chills. She denies any ear, nose, throat problems. Denies any chest pain. No shortness of breath. No cough, no cold. She denies any urinary symptoms now but she complains of nausea, abdominal pain and diarrhea. She denies any vomiting. She did have some dizziness and she complains of pain and denies any back pain. She has seen the [facility] in the recent past. PHYSICAL EXAMINATION: VITAL SIGNS: I find her temperature is 97.6, heart rate of 59, blood pressure is 118/67, respirations are 20. HEENT: Head is atraumatic and normocephalic. Pupils are reacting to light. Tongue is moist at this time. NECK: Supple. JVP is flat. LUNGS: Clear to auscultation. No crackles or rales present. HEART: S1, S2, regular. No murmurs appreciated. CHEST WALL: Symmetrical. ABDOMEN: Not distended but bowel sounds are present and she has vague tenderness and her bowel sounds are gurgling. EXTREMITIES: Have no edema, clubbing or cyanosis. NEUROLOGIC: She is alert, oriented x3. LABORATORY DATA: Labs are noted. White count is 6.3, hemoglobin 10.1, hematocrit 30.1, platelet count is 284. She does give a history of having . Sodium is 133, potassium 3.5, chlorides are 99, anion gap is 15, BUN is 4, creatinine is 0.8. She does have C. diff positive, and she has stool occult, stool leukocyte positive. She also had a urine culture on 07/31/2018 which was positive for E. coli and ESBL negative. However, blood culture x2 are negative and UA came out pretty benign. UA does not show any leukocytes, no wbc's. There are some squamous cells. There are rare bacteria. So, she may be chronically colonized with E. coli or it could be related to maybe a stool contaminant as she is having diarrhea at this time. PLAN: Suggest to hold off on Rocephin. Continue with the vancomycin p.o. and Flagyl IV. Repeat culture has been ordered for the urine. She is asymptomatic with any urinary symptoms at this time. I would not treat UTI in view of her C. diff as it looks to be probably a contaminant. UA is benign and the patient is asymptomatic. We will follow with Dr. Belkis Fonseca. We will repeat the labs tomorrow. Alden Montemayor MD
[2018-08-03] MEDS: Levothyroxine 25 MCG TAB PO SCH (07:08)
[2018-08-03 07:22] LABS: BASO % 0.7 % (0.0-2.0); EOS # 0.2 K/uL (0.0-0.7); EOS % 4.3 % (0.0-4.0); HEMOGLOBIN 9.5 g/dL (11.0-16.0); LYMPH % 19.6 % (20.0-40.0); MEAN CELL VOLUME 86.6 fL (81.0-99.0); MEAN CORPUSCULAR HEMOGLOBIN 29.5 pg (27.0-31.0); MEAN CORPUSCULAR HGB CONC 34.1 g/dL (33.0-37.0); MEAN PLATELET VOLUME 7.4 fL (7.2-11.7); MONO # 0.7 K/uL (0.0-0.8); NEUT # 3.2 K/uL (1.8-7.0); NEUT % 61.4 % (50.0-75.0); RBC 3.21 Mil/uL (3.80-5.20); RED CELL DISTRIBUTION WIDTH 14.5 % (11.5-14.5); WHITE BLOOD COUNT 5.1 K/uL (4.8-10.8)
[2018-08-03 07:34] LABS: ALB/GLOB RATIO 1.2 (1.0-2.1); ALBUMIN 2.9 g/dL (3.5-5.0); ALT/SGPT 52 U/L (9-52); AST/SGOT 52 U/L (14-36); BLOOD UREA NITROGEN 4 mg/dL (7-17); CALCIUM 7.9 mg/dl (8.6-10.4); GFR NON-AFRICAN AMERICAN > 60
[2018-08-03] MEDS: Potassium Chloride 10 mEq ER Tab PO SCH ×4 (08:43→17:56)
[2018-08-03] MEDS: Vancomycin Hydrochloride 250 mg Capsule (Oral) PO SCH ×4 (09:30→21:12)
[2018-08-03] MEDS: Metoprolol Succinate 25 mg XL Tab PO SCH (09:30)
[2018-08-03] MEDS: Pantoprazole 40 mg EC Tab PO SCH (09:36)
[2018-08-03] MEDS: Hydrocortisone 2.5% Rectal Cream(30 gm) PR SCH ×2 (09:49→18:00)
--- NOTE | 2018-08-03 11:04 | CP.PCM.PN ---
<Casimiro Paniagua - Last Filed: 08/03/18 11:02> Subjective - Date & Time of Evaluation Date of Evaluation: 08/03/18 Time of Evaluation: 09:15 - Subjective Subjective: PGY-4 GI Fellow Prog Note Pt sititng in bed when seen this AM. She states abd pain cont to improve. No diarrhea nor BM recently. Tolerating diet. 5 point ROS negative other than stated above Objective - Vital Signs/Intake and Output Vital Signs (last 24 hours): Temp Pulse Resp BP Pulse Ox 97.9 F 68 20 133/80 98 08/03/18 07:46 08/03/18 07:46 08/03/18 07:46 08/03/18 07:46 08/03/18 07:46 Intake and Output: 08/03/18 08/03/18 06:59 18:59 Intake Total 1800 Balance 1800 - Medications Medications: Current Medications Acetaminophen (Tylenol 325mg Tab) 650 mg PO Q8 PRN PRN Reason: Pain, Mild (1-3) Last Admin: 08/02/18 13:07 Dose: 650 mg Amlodipine Besylate (Norvasc) 5 mg PO DAILY [facility] Last Admin: 08/03/18 09:30 Dose: 5 mg Aspirin (Ecotrin) 81 mg PO DAILY [facility] Last Admin: 08/03/18 09:30 Dose: 81 mg Hydrocortisone (Anusol-Hc) 0 gm [place] BID [facility] Last Admin: 08/03/18 09:49 Dose: 1 applic Sodium Chloride (Sodium Chloride 0.9%) 1,000 mls @ 100 mls/hr IV .Q10H [facility] Last Admin: 08/02/18 21:30 Dose: Not Given Levothyroxine Sodium (Synthroid) 25 mcg PO DAILY@0630 [facility] Last Admin: 08/03/18 07:08 Dose: 25 mcg Losartan Potassium (Cozaar) 25 mg PO DAILY [facility] Last Admin: 08/03/18 09:30 Dose: 25 mg Metoprolol Succinate (Toprol Xl) 25 mg PO DAILY [facility] Last Admin: 08/03/18 09:30 Dose: 25 mg Ondansetron HCl (Zofran Tab) 4 mg PO TID PRN PRN Reason: Nausea/Vomiting Pantoprazole Sodium (Protonix Ec Tab) 40 mg PO DAILY [facility] Last Admin: 08/03/18 09:36 Dose: 40 mg Potassium Chloride (Klor-Con 10) 40 meq PO BRK [facility] Last Admin: 08/03/18 08:45 Dose: Not Given Rosuvastatin Calcium (Crestor) 20 mg PO HS [facility] Last Admin: 08/02/18 21:29 Dose: 20 mg Ticagrelor (Brilinta) 60 mg PO BID [facility] Last Admin: 08/03/18 09:30 Dose: 60 mg Vancomycin HCl (Vancocin 250mg Capsule) 250 mg PO QID [facility] Last Admin: 08/03/18 09:30 Dose: 250 mg - Labs Labs: 08/03/18 07:06 08/03/18 07:09 - Constitutional Appears: Well, No Acute Distress - Head Exam Head Exam: ATRAUMATIC, NORMAL INSPECTION - Eye Exam Eye Exam: EOMI. absent: Scleral icterus - ENT Exam ENT Exam: Mucous Membranes Moist. absent: Mucous Membranes Dry - Respiratory Exam Respiratory Exam: NORMAL BREATHING PATTERN. absent: Accessory Muscle Use - GI/Abdominal Exam GI & Abdominal Exam: Soft, Tenderness (mildly ttp in LLQ/suprapubic w/o guarding). absent: Bruit, Distended, Firm, Guarding, Rigid, Mass, Organomegaly, Pulsatile Mass Assessment and Plan - Assessment and Plan (Free Text) Assessment: # C diff colitis: First occurrence. Abx induced post-UTI trt # Abdominal Pain: Due to above, improved Plan: - Advanced diet today; counseled on bland diet and yogurt consumption - DC metronidazole - To complete course of PO Vancomycin; 14 days total - Pt will need outpatient colonoscopy in 6-8 weeks after resolution of infection - OK to DC from GI standpoint Pt seen and examined with Dr. Marx; please see attestation for further recs/changes <Fannie Marx - Last Filed: 08/03/18 12:16> Objective - Vital Signs/Intake and Output Vital Signs (last 24 hours): Temp Pulse Resp BP Pulse Ox 97.9 F 68 20 133/80 98 08/03/18 07:46 08/03/18 07:46 08/03/18 07:46 08/03/18 07:46 08/03/18 07:46 Intake and Output: 08/03/18 08/03/18 06:59 18:59 Intake Total 1800 Balance 1800 - Medications Medications: Current Medications Acetaminophen (Tylenol 325mg Tab) 650 mg PO Q8 PRN PRN Reason: Pain, Mild (1-3) Last Admin: 08/02/18 13:07 Dose: 650 mg Amlodipine Besylate (Norvasc) 5 mg PO DAILY [facility] Last Admin: 08/03/18 09:30 Dose: 5 mg Aspirin (Ecotrin) 81 mg PO DAILY [facility] Last Admin: 08/03/18 09:30 Dose: 81 mg Hydrocortisone (Anusol-Hc) 0 gm [place] BID [facility] Last Admin: 08/03/18 09:49 Dose: 1 applic Sodium Chloride (Sodium Chloride 0.9%) 1,000 mls @ 100 mls/hr IV .Q10H [facility] Last Admin: 08/02/18 21:30 Dose: Not Given Levothyroxine Sodium (Synthroid) 25 mcg PO DAILY@0630 [facility] Last Admin: 08/03/18 07:08 Dose: 25 mcg Losartan Potassium (Cozaar) 25 mg PO DAILY [facility] Last Admin: 08/03/18 09:30 Dose: 25 mg Metoprolol Succinate (Toprol Xl) 25 mg PO DAILY [facility] Last Admin: 08/03/18 09:30 Dose: 25 mg Ondansetron HCl (Zofran Tab) 4 mg PO TID PRN PRN Reason: Nausea/Vomiting Pantoprazole Sodium (Protonix Ec Tab) 40 mg PO DAILY [facility] Last Admin: 08/03/18 09:36 Dose: 40 mg Potassium Chloride (Klor-Con 10) 40 meq PO BRK [facility] Last Admin: 08/03/18 12:01 Dose: 40 meq Rosuvastatin Calcium (Crestor) 20 mg PO HS [facility] Last Admin: 08/02/18 21:29 Dose: 20 mg Ticagrelor (Brilinta) 60 mg PO BID [facility] Last Admin: 08/03/18 09:30 Dose: 60 mg Vancomycin HCl (Vancocin 250mg Capsule) 250 mg PO QID [facility] Last Admin: 08/03/18 09:30 Dose: 250 mg - Labs Labs: 08/03/18 07:06 08/03/18 07:09 Attending/Attestation - Attestation I have personally seen and examined this patient.: Yes I have fully participated in the care of the patient.: Yes I have reviewed all pertinent clinical information, including history, physical exam and plan: Yes Notes (Text): 08/03/18 12:15 I have seen and examined the pt with the GI fellow. Pt still with some mild LLQ abdominal pain, but tolerating liquids and appears to be doing well. Recommend d/c IV flagyl, advance to bland diet and likely can be d/c-ed home with PO vanco only (course of 14 days). Pt also needs repeat outpt colonoscopy as her last colonoscopy was incomplete.
[2018-08-03] MEDS: cefTRIAXone IV 1 gm in Dextros 50 ML IVPB SCH (14:53)
--- NOTE | 2018-08-03 15:36 | CP.PCM.PN ---
Subjective - Date & Time of Evaluation Date of Evaluation: 08/03/18 - Subjective Subjective: patient seen today no nausea no vomiting no dizziness no diarrhea no fever no shortness of breath Objective - Vital Signs/Intake and Output Vital Signs (last 24 hours): Temp Pulse Resp BP Pulse Ox 97.9 F 68 20 133/80 98 08/03/18 07:46 08/03/18 07:46 08/03/18 07:46 08/03/18 07:46 08/03/18 07:46 Intake and Output: 08/03/18 08/03/18 06:59 18:59 Intake Total 1800 1160 Balance 1800 1160 - Medications Medications: Current Medications Acetaminophen (Tylenol 325mg Tab) 650 mg PO Q8 PRN PRN Reason: Pain, Mild (1-3) Last Admin: 08/02/18 13:07 Dose: 650 mg Amlodipine Besylate (Norvasc) 5 mg PO DAILY [facility] Last Admin: 08/03/18 09:30 Dose: 5 mg Aspirin (Ecotrin) 81 mg PO DAILY [facility] Last Admin: 08/03/18 09:30 Dose: 81 mg Hydrocortisone (Anusol-Hc) 0 gm [place] BID [facility] Last Admin: 08/03/18 09:49 Dose: 1 applic Sodium Chloride (Sodium Chloride 0.9%) 1,000 mls @ 100 mls/hr IV .Q10H [facility] Last Admin: 08/02/18 21:30 Dose: Not Given Ceftriaxone Sodium (Rocephin Iv 1 Gm Duplex) 50 mls @ 100 mls/hr IVPB Q12H [facility]; Protocol Stop: 08/04/18 02:29 Last Admin: 08/03/18 14:53 Dose: 100 mls/hr Levothyroxine Sodium (Synthroid) 25 mcg PO DAILY@0630 [facility] Last Admin: 08/03/18 07:08 Dose: 25 mcg Losartan Potassium (Cozaar) 25 mg PO DAILY [facility] Last Admin: 08/03/18 09:30 Dose: 25 mg Metoprolol Succinate (Toprol Xl) 25 mg PO DAILY [facility] Last Admin: 08/03/18 09:30 Dose: 25 mg Ondansetron HCl (Zofran Tab) 4 mg PO TID PRN PRN Reason: Nausea/Vomiting Pantoprazole Sodium (Protonix Ec Tab) 40 mg PO DAILY [facility] Last Admin: 08/03/18 09:36 Dose: 40 mg Potassium Chloride (Klor-Con 10) 40 meq PO BRK [facility] Last Admin: 08/03/18 12:01 Dose: 40 meq Rosuvastatin Calcium (Crestor) 20 mg PO HS [facility] Last Admin: 08/02/18 21:29 Dose: 20 mg Ticagrelor (Brilinta) 60 mg PO BID [facility] Last Admin: 08/03/18 09:30 Dose: 60 mg Vancomycin HCl (Vancocin 250mg Capsule) 250 mg PO QID [facility] Last Admin: 08/03/18 14:29 Dose: 250 mg - Labs Labs: 08/03/18 07:06 08/03/18 07:09 - Constitutional Appears: Well - Head Exam Head Exam: ATRAUMATIC, NORMAL INSPECTION, NORMOCEPHALIC - Eye Exam Eye Exam: EOMI, Normal appearance, PERRL Pupil Exam: NORMAL ACCOMODATION, PERRL - ENT Exam ENT Exam: Mucous Membranes Moist, Normal Exam - Neck Exam Neck Exam: Full ROM, Normal Inspection. absent: Lymphadenopathy - Respiratory Exam Respiratory Exam: Decreased Breath Sounds - Cardiovascular Exam Cardiovascular Exam: REGULAR RHYTHM, +S1, +S2 - GI/Abdominal Exam GI & Abdominal Exam: Soft, Diminished Bowel Sounds - Rectal Exam Rectal Exam: Deferred Assessment and Plan - Assessment and Plan (Free Text) Plan: plan discussed with patient moderate complexity of care labs reviewed vitals reviewed medications reviewed anusol-hc brilinta cozaar crestor ecotrin klor-con norvasc protonix ec tab rocephin iv sodium chloride synthroid toprol xl tylenol vacocin zofran tab
--- NOTE | 2018-08-03 16:11 | CP.PCM.PN ---
Subjective - Date & Time of Evaluation Date of Evaluation: 08/03/18 Time of Evaluation: 14:00 - Subjective Subjective: dictated Objective - Vital Signs/Intake and Output Vital Signs (last 24 hours): Temp Pulse Resp BP Pulse Ox 97.9 F 68 20 133/80 98 08/03/18 07:46 08/03/18 07:46 08/03/18 07:46 08/03/18 07:46 08/03/18 07:46 Intake and Output: 08/03/18 08/03/18 06:59 18:59 Intake Total 1800 1160 Balance 1800 1160 - Medications Medications: Current Medications Acetaminophen (Tylenol 325mg Tab) 650 mg PO Q8 PRN PRN Reason: Pain, Mild (1-3) Last Admin: 08/02/18 13:07 Dose: 650 mg Amlodipine Besylate (Norvasc) 5 mg PO DAILY [facility] Last Admin: 08/03/18 09:30 Dose: 5 mg Aspirin (Ecotrin) 81 mg PO DAILY [facility] Last Admin: 08/03/18 09:30 Dose: 81 mg Hydrocortisone (Anusol-Hc) 0 gm [place] BID [facility] Last Admin: 08/03/18 09:49 Dose: 1 applic Sodium Chloride (Sodium Chloride 0.9%) 1,000 mls @ 100 mls/hr IV .Q10H [facility] Last Admin: 08/02/18 21:30 Dose: Not Given Ceftriaxone Sodium (Rocephin Iv 1 Gm Duplex) 50 mls @ 100 mls/hr IVPB Q12H [facility]; Protocol Stop: 08/04/18 02:29 Last Admin: 08/03/18 14:53 Dose: 100 mls/hr Levothyroxine Sodium (Synthroid) 25 mcg PO DAILY@0630 [facility] Last Admin: 08/03/18 07:08 Dose: 25 mcg Losartan Potassium (Cozaar) 25 mg PO DAILY [facility] Last Admin: 08/03/18 09:30 Dose: 25 mg Metoprolol Succinate (Toprol Xl) 25 mg PO DAILY [facility] Last Admin: 08/03/18 09:30 Dose: 25 mg Ondansetron HCl (Zofran Tab) 4 mg PO TID PRN PRN Reason: Nausea/Vomiting Pantoprazole Sodium (Protonix Ec Tab) 40 mg PO DAILY [facility] Last Admin: 08/03/18 09:36 Dose: 40 mg Potassium Chloride (Klor-Con 10) 40 meq PO BRK [facility] Last Admin: 08/03/18 12:01 Dose: 40 meq Rosuvastatin Calcium (Crestor) 20 mg PO HS [facility] Last Admin: 08/02/18 21:29 Dose: 20 mg Ticagrelor (Brilinta) 60 mg PO BID [facility] Last Admin: 08/03/18 09:30 Dose: 60 mg Vancomycin HCl (Vancocin 250mg Capsule) 250 mg PO QID [facility] Last Admin: 08/03/18 14:29 Dose: 250 mg - Labs Labs: 08/03/18 07:06 08/03/18 07:09
--- NOTE | 2018-08-03 16:15 | CARD ---
APPROVED REPORT Date of service: 07/31/2018 EKG Measurement Heart [id number] <Conclusion> Normal sinus rhythm Rightward axis Borderline ECG
[2018-08-03] MEDS: Sodium Chloride 0.9% 1,000 ML IV SCH ×2 (18:02→21:16)
[2018-08-03] MEDS: Saccharomyces Boulardi 250 mg Cap PO SCH (18:03)
--- NOTE | 2018-08-03 20:23 | PN ---
DATE: 08/03/2018 INFECTIOUS DISEASE FOLLOWUP SUBJECTIVE: The patient was seen today. She said she has normal bowel movement. She feels pain when she passes this. No nausea, no vomiting. She is improving. PHYSICAL EXAMINATION: VITAL SIGNS: T-max is 97.9, pulse 68, blood pressure 133/80, respirations 20. HEENT: Head is atraumatic and normocephalic. NECK: Supple. LUNGS: Clear. HEART: S1 and S2, regular. ABDOMEN: Soft. There is some vague abdominal pain when you press. Otherwise, no guarding, no rigidity present. EXTREMITIES: No edema, clubbing or cyanosis. LABORATORY DATA: White count is 5.1, hemoglobin 9.5, hematocrit 27.8, platelet count is 275. Potassium is 3.5 today, borderline. AST is 52. Creatinine is 0.8, sodium is 136. ASSESSMENT AND PLAN: Potassium is still on the low side but is improving. Urine culture now repeat is negative, so we are not going to treat that. The patient to continue with vancomycin and Flagyl for now. Once she improves, she will need vancomycin for 10-14 days p.o. Also we will put her on Lactobacillus, if she is not on it, to go home with that and to continue for several months. The patient does have Clostridium difficile colitis, dehydration and abdominal pain, so we will put her on Bacid. We will follow if she is still here, otherwise to go home on vancomycin p.o. in a.m. Alden Montemayor MD
[2018-08-04] MEDS: cefTRIAXone IV 1 gm in Dextros 50 ML IVPB SCH (01:34)
[2018-08-04] MEDS: Levothyroxine 25 MCG TAB PO SCH (06:00)
[2018-08-04 07:32] LABS: HEMOGLOBIN 9.6 g/dL (11.0-16.0); MEAN CELL VOLUME 86.6 fL (81.0-99.0); MEAN CORPUSCULAR HEMOGLOBIN 28.9 pg (27.0-31.0); MEAN CORPUSCULAR HGB CONC 33.3 g/dL (33.0-37.0); RBC 3.31 Mil/uL (3.80-5.20); RED CELL DISTRIBUTION WIDTH 14.9 % (11.5-14.5); WHITE BLOOD COUNT 6.6 K/uL (4.8-10.8)
[2018-08-04 07:59] VITALS: BP 138/85; PULSE 72; TEMP 97.8; O2SAT 98
[2018-08-04 08:11] LABS: ALB/GLOB RATIO 1.2 (1.0-2.1); ALT/SGPT 53 U/L (9-52); AST/SGOT 71 U/L (14-36); BLOOD UREA NITROGEN 4 mg/dL (7-17); CALCIUM 8.3 mg/dl (8.6-10.4); GFR NON-AFRICAN AMERICAN > 60
[2018-08-04] MEDS: Potassium Chloride 10 mEq ER Tab PO SCH ×2 (09:21→09:22)
[2018-08-04] MEDS: Metoprolol Succinate 25 mg XL Tab PO SCH (09:48)
[2018-08-04] MEDS: Vancomycin Hydrochloride 250 mg Capsule (Oral) PO SCH (09:48)
[2018-08-04] MEDS: Saccharomyces Boulardi 250 mg Cap PO SCH (09:49)
[2018-08-04] MEDS: Pantoprazole 40 mg EC Tab PO SCH (09:49)
[2018-08-04] MEDS: Hydrocortisone 2.5% Rectal Cream(30 gm) PR SCH (09:55)
--- NOTE | 2018-08-04 18:15 | CP.PCM.DIS ---
Provider - Provider Date of Admission: 07/31/18 18:27 Attending physician: Belkis Fonseca MD Consults: 07/31/18 18:26 Gastroenterology Consult Stat Comment: I page the doctor Consulting Provider: Robert Hogan Consulting Physician: Robert Hogan Reason for Consult: estrella colitis 08/01/18 23:33 Infectious Disease Consult Routine Comment: Consulting Provider: Alden Montemayor Consulting Physician: Alden Montemayor Reason for Consult: infectious disease Hospital Course - Lab Results Lab Results: Micro Results 07/31/18 18:45 Blood Blood Culture - Preliminary NO GROWTH AFTER 3 DAYS 07/31/18 18:15 Blood Blood Culture - Preliminary NO GROWTH AFTER 3 DAYS 08/02/18 15:15 Urine,Clean Catch Urine Culture - Final No Growth (<1,000 CFU/ML) 08/01/18 07:11 Stool Stool Culture - Final NO SALMONELLA, SHIGELLA OR CAMPYLOBACTER ISOLATED. 07/31/18 17:10 Urine Random Urine Culture - Final Escherichia Coli Most Recent Lab Values WBC 6.6 K/uL (4.8-10.8) 08/04/18 07:26 RBC 3.31 Mil/uL (3.80-5.20) L 08/04/18 07:26 Hgb 9.6 g/dL (11.0-16.0) L 08/04/18 07:26 Hct 28.7 % (34.0-47.0) L 08/04/18 07:26 MCV 86.6 fL (81.0-99.0) 08/04/18 07:26 MCH 28.9 pg (27.0-31.0) 08/04/18 07:26 MCHC 33.3 g/dL (33.0-37.0) 08/04/18 07:26 RDW 14.9 % (11.5-14.5) H 08/04/18 07:26 Plt Count 292 K/uL (130-400) 08/04/18 07:26 MPV 7.0 fL (7.2-11.7) L 08/04/18 07:26 Neut % (Auto) 61.4 % (50.0-75.0) 08/03/18 07:06 Lymph % (Auto) 19.6 % (20.0-40.0) L 08/03/18 07:06 [place] % (Auto) 14.0 % (0.0-10.0) H 08/03/18 07:06 Eos % (Auto) 4.3 % (0.0-4.0) H 08/03/18 07:06 Baso % (Auto) 0.7 % (0.0-2.0) 08/03/18 07:06 Neut # (Auto) 3.2 K/uL (1.8-7.0) 08/03/18 07:06 Lymph # (Auto) 1.0 K/uL (1.0-4.3) 08/03/18 07:06 [place] # (Auto) 0.7 K/uL (0.0-0.8) 08/03/18 07:06 Eos # (Auto) 0.2 K/uL (0.0-0.7) 08/03/18 07:06 Baso # (Auto) 0.0 K/uL (0.0-0.2) 08/03/18 07:06 Neutrophils % (Manual) 70 % (50-75) 07/31/18 16:49 Band Neutrophils % 15 % (0-2) H* 07/31/18 16:49 Lymphocytes % (Manual) 10 % (20-40) L 07/31/18 16:49 Monocytes % (Manual) 5 % (0-10) 07/31/18 16:49 Platelet Estimate Normal (NORMAL) 07/31/18 16:49 Polychromasia Slight 07/31/18 16:49 Hypochromasia (manual) Slight 07/31/18 16:49 pO2 18 mm/Hg (30-55) L 07/31/18 19:03 VBG pH 7.43 (7.32-7.43) 07/31/18 19:03 VBG pCO2 42 mmHg (40-60) 07/31/18 19:03 VBG HCO3 25.6 mmol/L 07/31/18 19:03 VBG Total CO2 29.2 mmol/L (22-28) H 07/31/18 19:03 VBG O2 Sat (Calc) 22.7 % (40-65) L 07/31/18 19:03 VBG Base Excess 3.2 mmol/L (0.0-2.0) H 07/31/18 19:03 VBG Potassium 3.7 mmol/L (3.6-5.2) 07/31/18 19:03 Sodium 131.0 mmol/l (132-148) L 07/31/18 19:03 Chloride 100.0 mmol/L (98-107) 07/31/18 19:03 Glucose 99 mg/dl (65-105) 07/31/18 19:03 Lactate 1.2 mmol/L (0.7-2.1) 07/31/18 19:03 Sodium 138 mmol/L (132-148) 08/04/18 07:26 Potassium 4.2 mmol/L (3.6-5.2) 08/04/18 07:26 Chloride 103 mmol/L (98-107) 08/04/18 07:26 Carbon Dioxide 24 mmol/L (22-30) 08/04/18 07:26 Anion Gap 15 (10-20) 08/04/18 07:26 BUN 4 mg/dL (7-17) L 08/04/18 07:26 Creatinine 0.7 mg/dL (0.7-1.2) 08/04/18 07:26 Est GFR ( Amer) > 60 08/04/18 07:26 Est GFR (Non-Af Amer) > 60 08/04/18 07:26 Random Glucose 94 mg/dL (65-105) 08/04/18 07:26 Calcium 8.3 mg/dl (8.6-10.4) L 08/04/18 07:26 Magnesium 2.0 mg/dL (1.6-2.3) 08/03/18 07:09 Total Bilirubin 0.4 mg/dL (0.2-1.3) 08/04/18 07:26 AST 71 U/L (14-36) H D 08/04/18 07:26 ALT 53 U/L (9-52) H 08/04/18 07:26 Alkaline Phosphatase 59 U/L (38-126) 08/04/18 07:26 Troponin I < 0.0120 ng/mL (0.00-0.120) 07/31/18 16:49 Total Protein 5.5 g/dL (6.3-8.3) L 08/04/18 07:26 Albumin 3.0 g/dL (3.5-5.0) L 08/04/18 07:26 Globulin 2.5 gm/dL (2.2-3.9) 08/04/18 07:26 Albumin/Globulin Ratio 1.2 (1.0-2.1) 08/04/18 07:26 Lipase 69 U/L (23-300) 07/31/18 16:49 Venous Blood Potassium 3.7 mmol/L (3.6-5.2) 07/31/18 19:03 Urine Color Yellow (YELLOW) 08/02/18 15:15 Urine Clarity Clear (Clear) 08/02/18 15:15 Urine pH 7.0 (5.0-8.0) 08/02/18 15:15 Ur Specific [place] 1.009 (1.003-1.030) 08/02/18 15:15 Urine Protein Negative mg/dL (NEGATIVE) 08/02/18 15:15 Urine Glucose (UA) Normal mg/dL (Normal) 08/02/18 15:15 Urine Ketones Negative mg/dL (NEGATIVE) 08/02/18 15:15 Urine Blood Negative (NEGATIVE) 08/02/18 15:15 Urine Nitrate Negative (NEGATIVE) 08/02/18 15:15 Urine Bilirubin Negative (NEGATIVE) 08/02/18 15:15 Urine Urobilinogen Normal mg/dL (0.2-1.0) 08/02/18 15:15 Ur Leukocyte Esterase Neg [place]/uL (Negative) 08/02/18 15:15 Urine WBC (Auto) 1 /hpf (0-5) 08/02/18 15:15 Urine RBC (Auto) 1 /hpf (0-3) 08/02/18 15:15 Ur Squamous Epith Cells 1 /hpf (0-5) 08/02/18 15:15 Urine Bacteria Rare (<OCC) 07/31/18 17:10 Stool Occult Blood Positive (NEGATIVE) H 08/01/18 07:11 Stool Leukocytes, Qual Positive (NEGATIVE) H 07/31/18 07:11 C. difficile Ag & Toxin Positive (NEGATIVE) H 07/31/18 07:11 Discharge Exam - Head Exam Head Exam: ATRAUMATIC, NORMAL INSPECTION, NORMOCEPHALIC Discharge Plan - Discharge Medications Prescriptions: Nitrofurantoin Macrocrystals [Macrobid] 100 mg PO BID 7 Days cap - Follow Up Plan Condition: GOOD Disposition: HOME/ ROUTINE Instructions: Acute Abdomen (Belly Pain), Adult (DC), Ulcerative Colitis (DC), Nitrofurantoin Referrals: Paco Fonseca MD [Staff Provider] -
== END 2018-08-04 12:00 | disposition home or self-care (01) | DRG 372 ==
LOC: C.ER 15:34 → C.9E 18:27 → C.3T 20:50
PROVIDERS: ADMIT Internal Medicine Nephrology; ATTEND Internal Medicine Nephrology
DX: A04.72 Enterocolitis due to Clostridium difficile, not specified as recurrent (principal); N39.0 Urinary tract infection, site not specified; D72.825 Bandemia; E78.5 Hyperlipidemia, unspecified; E11.9 Type 2 diabetes mellitus without complications; E86.0 Dehydration; I10 Essential (primary) hypertension; K66.0 Peritoneal adhesions (postprocedural) (postinfection); Z95.5 Presence of coronary angioplasty implant and graft